=== PATIENT | female | born 1970 | race African-American/Black ===

== ENCOUNTER 2020-12-10 12:23 | Emergency (ER) | payer MEDICAID ==
[~2020-12-10] VITALS: Ht 167.6 cm; Wt 77.0 kg
[2020-12-10] MEDS ORDERED: ONDANSETRON HCL 4MG/2ML INJ IV STA (12:48)
[2020-12-10] MEDS ORDERED: ACETAMINOPHEN 325MG TABLET PO STA (12:48)
[2020-12-10] MEDS ORDERED: SODIUM CHLORIDE 0.9% 1,000 ML IV ONE (13:00)
[2020-12-10 13:34] LABS: BASOPHILS % 0.6 % (0.0-2.0); EOSINOPHILS % 0.6 % (0.0-5.0); HEMATOCRIT. 37.1 % (36.0-48.0); HEMOGLOBIN. 13.2 g/dL (12.0-16.0); LYMPHOCYTES % 20.5 % (20.0-50.0); MEAN CORPUSCULAR VOLUME 92.7 fL (81.0-99.0); MEAN PLATELET VOLUME 8.6 fl (7.4-10.4); MONOCYTES % 9.5 % (2.0-8.0); NEUTROPHILS % 68.8 % (40.0-76.0); PLATELET 449 x1000/uL (130-400); RED CELL DISTRIBUTION WIDTH 14.3 % (11.6-14.6)
[2020-12-10 13:45] LABS: CHLORIDE 103 mEq/L (98-107)
[2020-12-10 16:30] VITALS: BP 134/78
== END 2020-12-10 19:53 | disposition short-term general hospital (02) ==
LOC: ER 12:37
DX: J96.91 Respiratory failure, unspecified with hypoxia (principal); R11.2 Nausea with vomiting, unspecified; Z20.822 Contact with and (suspected) exposure to COVID-19; Z88.5 Allergy status to narcotic agent
CPT/HCPCS: 36415; 71045; 80053; 82962; 83605; 83690; 83880; 85025; 87426; 96361; 96374; 99285; J2405; J7030